=== PATIENT | female | born 1990 | race Caucasian/White ===

== ENCOUNTER → 2017-06-25 | Outpatient (CLI) | payer OTHER ==
--- NOTE | 2017-06-26 08:19 | Diagnostic Imaging Report ---
#[id number] - USBRECOMRT ULTRASOUND OF THE RIGHT BREAST : 06/25/2017 Comparison is made to exam dated: 06/25/2017 mammogram - [facility]. Color flow and real-time ultrasound were performed on the entire right breast with scanning in all four quadrants, retroareolar region and the right axilla. IMPRESSION: BENIGN There is no sonographic evidence of malignancy. Follow-up with ACR/ACS guidelines. Sharath Koroma Jr., D.O. cw/:06/25/2017 14:55:14 Interior Decorator: KUSH FAM, [facility] letter sent: Normal Exam Ultrasound BI-RADS: 2 Benign
--- NOTE | 2017-06-26 08:19 | Diagnostic Imaging Report ---
#[id number] - MGDXBIL #BILATERAL DIGITAL DIAGNOSTIC MAMMOGRAM WITH CAD: 06/25/2017 No prior exams were available for comparison. Current study contains 8 films. The tissue of both breasts is extremely dense, which lowers the sensitivity of mammography. Current study was also evaluated with a Computer Aided Detection (CAD) system. There is a possible nodule that resembles a lymph node measuring 4 mm adjacent to the palpable mass marker in the left breast anterior depth superior region seen on the mediolateral oblique view only. Ultrasound in this region did not reveal a definite sonographic abnormality. Bilateral silicone implants are intact. No other significant masses, calcifications, or other findings are seen in either breast. IMPRESSION: PROBABLY BENIGN The possible nodule in the left breast is probably benign. A follow-up unilateral mammogram in 6 months is recommended to demonstrate stability. The patient was notified of these findings and the need for followup. Sharath Koroma Jr., D.O. cw/:06/25/2017 14:52:54 Filler Sifter Helper: Chaya PIZANO)(Abdias), [facility] letter sent: Followup Recommended Mammogram BI-RADS: 3 Probably benign
--- NOTE | 2017-06-26 08:19 | Diagnostic Imaging Report ---
#[id number] - USBRECOMLT ULTRASOUND OF THE LEFT BREAST : 06/25/2017 Comparison is made to exam dated: 06/25/2017 mammogram - [facility]. Color flow and real-time ultrasound were performed on the entire left breast with scanning in all four quadrants, retroareolar region and left axilla. No mass, cyst or prominent lymph node is identified. As the patient has a palpable abnormality at the 2 o'clock position, a left breast mammogram in 6 months is advised. IMPRESSION: BENIGN There is no sonographic evidence of malignancy. Followup left breast mammogram in 6 months to ascertain stability is advised. Sharath Koroma Jr., D.O. cw/:06/25/2017 14:58:36 Packing Machine Operator: KUSH FAM, [facility] letter sent: Normal Exam Ultrasound BI-RADS: 2 Benign
== END ==
LOC: MAMMO 13:07
PROVIDERS: ATTEND Family Medicine
DX: N63.20 Unspecified lump in the left breast, unspecified quadrant (principal); N64.4 Mastodynia
CPT/HCPCS: 77066

== ENCOUNTER → 2019-11-01 | Outpatient (CLI) | payer OTHER | LOC: MAMMO 11:35 | PROVIDERS: ATTEND Family Medicine | DX: N64.4 Mastodynia (principal) | CPT/HCPCS: 36415; 77066; 82948 ==